=== PATIENT | female | born 1965 | race American Indian/Alaskan Native ===

== ENCOUNTER 2017-02-27 15:13 | Observation (INO) | payer BC, OTHER ==
[2017-02-27] MEDS ORDERED: Ketorolac 30 MG/ML SDV IVPUSH ONE (15:49)
[2017-02-27] MEDS ORDERED: Sodium Chloride 0.9% 10 ML Syringe FLUSH PRN (15:49)
[2017-02-27] MEDS ORDERED: Sodium Chloride 0.9% 2.5 ML Syringe FLUSH PRN (15:49)
--- NOTE | 2017-02-27 15:57 | EDM.PDOC ---
ED HPI GENERAL MEDICAL PROBLEM - General Chief Complaint: Lower Extremity Injury/Pain Stated Complaint: LEFT LEG PAIN Time Seen by Provider: 02/27/17 15:45 Source of Information: Reports: Patient History Limitations: Reports: No Limitations - History of Present Illness INITIAL COMMENTS - FREE TEXT/NARRATIVE: History of present illness: [52-year-old female presenting to ED with complaints of left leg pain. Patient is being treated and [facility] and had an MRI when she had a dialogue with her provider there indicating that she was having intractable pain in her left leg and her provider called here and then directed her to come to ER for care.] Review of systems: As per history of present illness and below otherwise all systems reviewed and negative. Past medical history: As per history of present illness and as reviewed below otherwise noncontributory. Surgical history: As per history of present illness and as reviewed below otherwise noncontributory. Social history: No reported history of drug or alcohol abuse. Family history: As per history of present illness and as reviewed below otherwise noncontributory. Physical exam: HEENT: Atraumatic, normocephalic, pupils reactive, negative for conjunctival pallor or scleral icterus, mucous membranes moist, throat clear, neck supple, nontender, trachea midline. Lungs: Clear to auscultation, breath sounds equal bilaterally, chest nontender. Heart: S1S2, regular, negative for clicks, rubs, or JVD. Abdomen: Soft, nondistended, nontender. Negative for masses or hepatosplenomegaly. Negative for costovertebral tenderness. Pelvis: Stable nontender. Genitourinary: Deferred. Rectal: Deferred. Extremities: Left leg is significantly more edematous than right with 2+ generalized nonpitting edema. Pedal pulses are palpable and recent Doppler study is negative. Neurovascular unremarkable. Neuro: Awake, alert, oriented. Cranial nerves II through XII unremarkable. Cerebellum unremarkable. Motor and sensory unremarkable throughout. Exam nonfocal. Called radiology department secondary to patient's MRI this morning and Dr. Sierra was gracious enough to evaluate that for us. MRI evaluated by Dr. Sierra positive for a significant uterine mass with resulting lymphadenopathy compressing the left external iliac vein with a resultant DVT of the external iliac vein extending into the femoral vein. Secondary to the abdominal mass Dr. Nichols consulted, he presented to the ED where he subsequently evaluated the patient and performed a pelvic. Dr. Nichols indicated that he desired to have patient admitted for medical management of her DVT and he would work on having her transferred to [facility] for oncology treatment tomorrow. Dr. Parra in ED and evaluated patient at the bedside. Diagnostics: [MRI done this morning CBC, CMP, BNP] Therapeutics: [Toradol IV, IV fluid, fentanyl, Zofran ] Impression: [Uterine carcinoma, DVT] Plan: [Admit to Dr. Parra] Definitive disposition and diagnosis as appropriate pending reevaluation and review of above. 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: Endocrine/Metabolic History: Reports: Diabetes, Type II Social & Family History - Family History Family Medical History: Noncontributory - Tobacco Use Smoking Status *Q: Current Every Day Smoker Years of Tobacco use: 30 Packs/Tins Daily: 1 - Caffeine Use Caffeine Use: Reports: Coffee Caffeine Use Comment: 3 cups daily - Recreational Drug Use Recreational Drug Use: No Review of Systems - Review of Systems Review Of Systems: See Below (History of present illness) ED EXAM, GENERAL - Physical Exam Exam: See Below (See history of present illness) Course - Vital Signs Last Recorded V/S: Last Vital Signs Temp 36.6 C 02/27/17 17:43 Pulse 98 02/27/17 17:43 Resp 14 02/27/17 17:43 BP 120/74 02/27/17 17:43 Pulse Ox 98 02/27/17 17:43 - Orders/Labs/Meds Orders: Active Orders 24 hr Category Date Time Status Patient Status [ADT] Routine ADT 02/27/17 17:48 Active Accu Check [Blood Glucose Check, Bedside] [RC] TIDMEALS Care 02/27/17 17:52 Active Cardiac Monitoring [RC] CONTINUOUS Care 02/27/17 17:50 Active Intake and Output [RC] QSHIFT Care 02/27/17 17:49 Active Oxygen Therapy [RC] PRN Care 02/27/17 17:48 Active Pulse Oximetry [RC] CONTINUOUS Care 02/27/17 17:50 Active VTE/DVT Education [RC] PER UNIT ROUTINE Care 02/27/17 17:48 Active Vital Signs [RC] Q4H Care 02/27/17 17:48 Active [place] [employer] Diet [DIET] Diet 02/27/17 Breakfast Active BASIC METABOLIC PANEL,BMP [CHEM] AM Lab 02/28/17 05:11 Ordered BASIC METABOLIC PANEL,BMP [CHEM] AM Lab 03/01/17 05:11 Ordered CBC WITH AUTO DIFF [HEME] AM Lab 02/28/17 05:11 Ordered CBC WITH AUTO DIFF [HEME] AM Lab 03/01/17 05:11 Ordered Heparin Sodium 25,000 units Med 02/27/17 17:45 Active Dextrose 5% in Water 495 ml IV TITRATE Insulin Aspart [NovoLOG] Med 02/28/17 07:30 Active See Protocol SUBCUT TIDAC Morphine Med 02/27/17 17:48 Active 2 mg IVPUSH Q2H PRN Ondansetron [Zofran] Med 02/27/17 17:48 Active 4 mg IVPUSH Q4H PRN Sodium Chloride 0.9% [Saline Flush] Med 02/27/17 15:49 Active 10 ml FLUSH ASDIRECTED PRN Sodium Chloride 0.9% [Saline Flush] Med 02/27/17 15:49 Active 2.5 ml FLUSH ASDIRECTED PRN oxyCODONE Med 02/27/17 17:48 Active 5 mg PO Q4H PRN Saline Lock Insert [OM.PC] Stat Oth 02/27/17 15:48 Ordered Resuscitation Status Routine Resus Stat 02/27/17 17:48 Ordered Medication Orders Heparin Sodium (Porcine) 25, (000 units/ Dextrose/Water) 500 mls @ 38.16 mls/ hr IV TITRATE ILDEFONSO; 18 UNITS/KG/HR PRN Reason: Protocol Insulin Aspart (Novolog) 0 unit SUBCUT TIDAC ILDEFONOS PRN Reason: Protocol Morphine Sulfate (Morphine) 2 mg IVPUSH Q2H PRN PRN Reason: Pain (severe 7-10) Stop: 02/28/17 17:49 Ondansetron HCl (Zofran) 4 mg IVPUSH Q4H PRN PRN Reason: Nausea Oxycodone HCl (Oxycodone) 5 mg PO Q4H PRN PRN Reason: Pain (moderate 4-6) Sodium Chloride (Saline Flush) 10 ml FLUSH ASDIRECTED PRN PRN Reason: Keep Vein Open Last Admin: 02/27/17 16:02 Dose: 10 ml Sodium Chloride (Saline Flush) 2.5 ml FLUSH ASDIRECTED PRN PRN Reason: Keep Vein Open Labs: Laboratory Tests 02/27/17 02/27/17 02/27/17 Range/Units 15:57 15:57 15:57 WBC 10.68 (4.0-11.0) K/uL RBC 4.23 L (4.30-5.90) M/uL Hgb 12.5 (12.0-16.0) g/dL Hct 38.5 (36.0-46.0) % MCV 91.0 (80.0-98.0) fL MCH 29.6 (27.0-32.0) pg MCHC 32.5 (31.0-37.0) g/dL RDW Std Deviation 45.3 (28.0-62.0) fl RDW Coeff of Aubree 14 (11.0-15.0) % Plt Count 219 (150-400) K/uL MPV 10.30 (7.40-12.00) fL Neut % (Auto) 75.1 (48.0-80.0) % Lymph % (Auto) 16.3 (16.0-40.0) % [place] % (Auto) 5.6 (0.0-15.0) % Eos % (Auto) 2.7 (0.0-7.0) % Baso % (Auto) 0.3 (0.0-1.5) % Neut # (Auto) 8.0 H (1.4-5.7) K/uL Lymph # (Auto) 1.7 (0.6-2.4) K/uL [place] # (Auto) 0.6 (0.0-0.8) K/uL Eos # (Auto) 0.3 (0.0-0.7) K/uL Baso # (Auto) 0.0 (0.0-0.1) K/uL Nucleated RBC % 0.0 /100WBC Nucleated RBCs # 0 K/uL INR (0.86-1.11) Lactate (0.20-2.00) mmol/L Sodium 138 (136-146) mmol/L Potassium 3.7 (3.5-5.1) mmol/L Chloride 105 (98-110) mmol/L Carbon Dioxide 22 (21-31) mmol/L BUN 17 (6.0-23.0) mg/dL Creatinine 0.7 (0.6-1.5) mg/dL Est Cr Clr Drug Dosing 83.63 mL/min Estimated GFR (MDRD) > 60.0 ml/min Glucose 94 (60-110) mg/dL Calcium 9.2 (8.8-10.8) mg/dL Total Bilirubin 0.6 (0.1-1.5) mg/dL AST 13 (5-40) IU/L ALT 12 (8-54) IU/L Alkaline Phosphatase 91 (40-150) B-Natriuretic Peptide < 15 (<100) PG/ML Total Protein 8.0 (6.0-8.0) g/dL Albumin 4.3 (3.5-5.0) g/dL Globulin 3.7 H (2.0-3.5) g/dL Albumin/Globulin Ratio 1.2 L (1.3-2.8) 02/27/17 02/27/17 Range/Units 15:57 17:27 WBC (4.0-11.0) K/uL RBC (4.30-5.90) M/uL Hgb (12.0-16.0) g/dL Hct (36.0-46.0) % MCV (80.0-98.0) fL MCH (27.0-32.0) pg MCHC (31.0-37.0) g/dL RDW Std Deviation (28.0-62.0) fl RDW Coeff of Aubree (11.0-15.0) % Plt Count (150-400) K/uL MPV (7.40-12.00) fL Neut % (Auto) (48.0-80.0) % Lymph % (Auto) (16.0-40.0) % [place] % (Auto) (0.0-15.0) % Eos % (Auto) (0.0-7.0) % Baso % (Auto) (0.0-1.5) % Neut # (Auto) (1.4-5.7) K/uL Lymph # (Auto) (0.6-2.4) K/uL [place] # (Auto) (0.0-0.8) K/uL Eos # (Auto) (0.0-0.7) K/uL Baso # (Auto) (0.0-0.1) K/uL Nucleated RBC % /100WBC Nucleated RBCs # K/uL INR 0.96 (0.86-1.11) Lactate 1.1 (0.20-2.00) mmol/L Sodium (136-146) mmol/L Potassium (3.5-5.1) mmol/L Chloride (98-110) mmol/L Carbon Dioxide (21-31) mmol/L BUN (6.0-23.0) mg/dL Creatinine (0.6-1.5) mg/dL Est Cr Clr Drug Dosing mL/min Estimated GFR (MDRD) ml/min Glucose (60-110) mg/dL Calcium (8.8-10.8) mg/dL Total Bilirubin (0.1-1.5) mg/dL AST (5-40) IU/L ALT (8-54) IU/L Alkaline Phosphatase (40-150) B-Natriuretic Peptide (<100) PG/ML Total Protein (6.0-8.0) g/dL Albumin (3.5-5.0) g/dL Globulin (2.0-3.5) g/dL Albumin/Globulin Ratio (1.3-2.8) Meds: Medications Generic Name Dose Route Start Last Admin Trade Name Freq PRN Reason Stop Dose Admin Heparin Sodium (Porcine) 25, 500 mls @ 38.16 mls/hr 02/27/17 17:45 000 units/ Dextrose/Water IV TITRATE [facility] Protocol 18 UNITS/KG/HR Insulin Aspart 0 unit 02/28/17 07:30 Novolog SUBCUT TIDAC [facility] Protocol Morphine Sulfate 2 mg 02/27/17 17:48 Morphine IVPUSH 02/28/17 17:49 Q2H PRN Pain (severe 7-10) Ondansetron HCl 4 mg 02/27/17 17:48 Zofran IVPUSH Q4H PRN Nausea Oxycodone HCl 5 mg 02/27/17 17:48 Oxycodone PO Q4H PRN Pain (moderate 4-6) Sodium Chloride 10 ml 02/27/17 15:49 02/27/17 16:02 Saline Flush FLUSH 10 ml ASDIRECTED PRN Administration Keep Vein Open Sodium Chloride 2.5 ml 02/27/17 15:49 Saline Flush FLUSH ASDIRECTED PRN Keep Vein Open Discontinued Medications Generic Name Dose Route Start Last Admin Trade Name Freq PRN Reason Stop Dose Admin Fentanyl 50 mcg 02/27/17 16:59 02/27/17 17:31 Sublimaze IVPUSH 02/27/17 17:00 Not Given ONETIME ONE Heparin Sodium/Dextrose 25,000 units in 500 mls @ 38.16 mls/hr 02/27/17 17:45 Heparin 25,000 Units In D5w 500 Ml IV TITRATE ILDEFONSO Protocol 18 UNITS/KG/HR Ketorolac Tromethamine 30 mg 02/27/17 15:49 02/27/17 16:00 Toradol IVPUSH 02/27/17 15:50 30 mg ONETIME ONE Administration Ondansetron HCl 8 mg 02/27/17 16:59 02/27/17 17:32 Zofran IVPUSH 02/27/17 17:00 Not Given ONETIME ONE Departure - Departure Time of Disposition: 17:58 Disposition: Admitted As Inpatient 65 Condition: good Clinical Impression: DVT (deep venous thrombosis), Uterine cancer - Discharge Information Forms: ED Department Discharge - My Orders Last 24 Hours: My Active Orders 02/27/17 15:48 Saline Lock Insert [OM.PC] Stat 02/27/17 15:49 Sodium Chloride 0.9% [Saline Flush] 10 ml FLUSH ASDIRECTED PRN Sodium Chloride 0.9% [Saline Flush] 2.5 ml FLUSH ASDIRECTED PRN - Assessment/Plan Last 24 Hours: My Active Orders 02/27/17 15:48 Saline Lock Insert [OM.PC] Stat 02/27/17 15:49 Sodium Chloride 0.9% [Saline Flush] 10 ml FLUSH ASDIRECTED PRN Sodium Chloride 0.9% [Saline Flush] 2.5 ml FLUSH ASDIRECTED PRN
[2017-02-27 16:27] LABS: CHLORIDE,CL 105 mmol/L (98-110); SODIUM,NA 138 mmol/L (136-146)
[2017-02-27] MEDS ORDERED: fentaNYL 100 MCG/2 ML SDV IVPUSH ONE (16:59)
[2017-02-27] MEDS ORDERED: Ondansetron 4 MG/2 ML SDV IVPUSH ONE (16:59)
[2017-02-27] MEDS ORDERED: Heparin Sodium/D5W 25,000 UNITS/500 ML BAG IV SCH (17:45)
[2017-02-27] MEDS ORDERED: Ondansetron 4 MG/2 ML SDV IVPUSH PRN (17:48)
--- NOTE | 2017-02-27 17:58 | PCM.HP ---
H&P History of Present Illness - General Admit Problem/Dx: Admission Diagnosis/Problem Admission Diagnosis/Problem DVT, Deep venous thrombosis - History of Present Illness Initial Comments - Free Text/Narative: 52 yo female with pmh of HTN and DM who presents with right leg pain and swelling for past five days. Pain and swelling start at pelvis and runs down thigh. She had MRI of pelvis which reports mass of the posterior and lower uterus to cervix. There is lymphadenopathy of iliac chains with compression of left external iliac vein resulting in DVT. Dr. Nichols was consulted in the ED and recommended admission for treatment of DVT. 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: Endocrine/Metabolic History: Reports: Diabetes, Type II Social & Family History - Family History Family Medical History: Noncontributory - Tobacco Use Smoking Status *Q: Current Every Day Smoker Years of Tobacco use: 30 Packs/Tins Daily: 1 - Caffeine Use Caffeine Use: Reports: Coffee Caffeine Use Comment: 3 cups daily - Recreational Drug Use Recreational Drug Use: No H&P Review of Systems - Review of Systems: Review Of Systems: See Below General: Reports: No Symptoms HEENT: Reports: No Symptoms Pulmonary: Reports: No Symptoms Cardiovascular: Reports: No Symptoms Gastrointestinal: Reports: No Symptoms Genitourinary: Reports: No Symptoms Musculoskeletal: Reports: No Symptoms Skin: Reports: No Symptoms Psychiatric: Reports: No Symptoms Neurological: Reports: No Symptoms Hematologic/Lymphatic: Reports: No Symptoms Immunologic: Reports: No Symptoms Exam - Exam Exam: See Below - Vital Signs Vital Signs: Last Vital Signs Temp 36.6 C 02/27/17 17:43 Pulse 98 02/27/17 17:43 Resp 14 02/27/17 17:43 BP 120/74 02/27/17 17:43 Pulse Ox 98 02/27/17 17:43 Weight: 106 kg - Exam General: Alert, Oriented, 4 HEENT: Mucosa Moist & [place] Neck: Supple, Trachea Midline Lungs: Clear to Auscultation, Normal Respiratory Effort Cardiovascular: Regular Rate, Regular Rhythm Abdomen: Soft. No: Tenderness Extremities: Other (left leg edema+1 , pedal pulses present, warm leg, patchy erythema of left thigh and anterior lower leg, ) Neurological: Normal Gait. No: Focal Deficit - Patient Data Lab Results last 24 hrs: Laboratory Results - last 24 hr 02/27/17 02/27/17 02/27/17 Range/Units 15:57 15:57 15:57 WBC 10.68 (4.0-11.0) K/uL RBC 4.23 L (4.30-5.90) M/uL Hgb 12.5 (12.0-16.0) g/dL Hct 38.5 (36.0-46.0) % MCV 91.0 (80.0-98.0) fL MCH 29.6 (27.0-32.0) pg MCHC 32.5 (31.0-37.0) g/dL RDW Std Deviation 45.3 (28.0-62.0) fl RDW Coeff of Aubree 14 (11.0-15.0) % Plt Count 219 (150-400) K/uL MPV 10.30 (7.40-12.00) fL Neut % (Auto) 75.1 (48.0-80.0) % Lymph % (Auto) 16.3 (16.0-40.0) % [place] % (Auto) 5.6 (0.0-15.0) % Eos % (Auto) 2.7 (0.0-7.0) % Baso % (Auto) 0.3 (0.0-1.5) % Neut # (Auto) 8.0 H (1.4-5.7) K/uL Lymph # (Auto) 1.7 (0.6-2.4) K/uL [place] # (Auto) 0.6 (0.0-0.8) K/uL Eos # (Auto) 0.3 (0.0-0.7) K/uL Baso # (Auto) 0.0 (0.0-0.1) K/uL Nucleated RBC % 0.0 /100WBC Nucleated RBCs # 0 K/uL INR (0.86-1.11) Lactate (0.20-2.00) mmol/L Sodium 138 (136-146) mmol/L Potassium 3.7 (3.5-5.1) mmol/L Chloride 105 (98-110) mmol/L Carbon Dioxide 22 (21-31) mmol/L BUN 17 (6.0-23.0) mg/dL Creatinine 0.7 (0.6-1.5) mg/dL Est Cr Clr Drug Dosing 83.63 mL/min Estimated GFR (MDRD) > 60.0 ml/min Glucose 94 (60-110) mg/dL Calcium 9.2 (8.8-10.8) mg/dL Total Bilirubin 0.6 (0.1-1.5) mg/dL AST 13 (5-40) IU/L ALT 12 (8-54) IU/L Alkaline Phosphatase 91 (40-150) B-Natriuretic Peptide < 15 (<100) PG/ML Total Protein 8.0 (6.0-8.0) g/dL Albumin 4.3 (3.5-5.0) g/dL Globulin 3.7 H (2.0-3.5) g/dL Albumin/Globulin Ratio 1.2 L (1.3-2.8) 02/27/17 02/27/17 Range/Units 15:57 17:27 WBC (4.0-11.0) K/uL RBC (4.30-5.90) M/uL Hgb (12.0-16.0) g/dL Hct (36.0-46.0) % MCV (80.0-98.0) fL MCH (27.0-32.0) pg MCHC (31.0-37.0) g/dL RDW Std Deviation (28.0-62.0) fl RDW Coeff of Aubree (11.0-15.0) % Plt Count (150-400) K/uL MPV (7.40-12.00) fL Neut % (Auto) (48.0-80.0) % Lymph % (Auto) (16.0-40.0) % [place] % (Auto) (0.0-15.0) % Eos % (Auto) (0.0-7.0) % Baso % (Auto) (0.0-1.5) % Neut # (Auto) (1.4-5.7) K/uL Lymph # (Auto) (0.6-2.4) K/uL [place] # (Auto) (0.0-0.8) K/uL Eos # (Auto) (0.0-0.7) K/uL Baso # (Auto) (0.0-0.1) K/uL Nucleated RBC % /100WBC Nucleated RBCs # K/uL INR 0.96 (0.86-1.11) Lactate 1.1 (0.20-2.00) mmol/L Sodium (136-146) mmol/L Potassium (3.5-5.1) mmol/L Chloride (98-110) mmol/L Carbon Dioxide (21-31) mmol/L BUN (6.0-23.0) mg/dL Creatinine (0.6-1.5) mg/dL Est Cr Clr Drug Dosing mL/min Estimated GFR (MDRD) ml/min Glucose (60-110) mg/dL Calcium (8.8-10.8) mg/dL Total Bilirubin (0.1-1.5) mg/dL AST (5-40) IU/L ALT (8-54) IU/L Alkaline Phosphatase (40-150) B-Natriuretic Peptide (<100) PG/ML Total Protein (6.0-8.0) g/dL Albumin (3.5-5.0) g/dL Globulin (2.0-3.5) g/dL Albumin/Globulin Ratio (1.3-2.8) Result Diagrams: 02/27/17 15:57 02/27/17 15:57 *Q Meaningful Use (ADM) - VTE *Q VTE Criteria *Q: - Stroke *Q Stroke Criteria *Q: - AMI *Q AMI Criteria *Q: Problem List Initiated/Reviewed/Updated: Yes Orders Last 24hrs: Active Orders 24 hr Category Date Time Status Patient Status [ADT] Routine ADT 02/27/17 17:48 Ordered Accu Check [Blood Glucose Check, Bedside] [RC] TIDMEALS Care 02/27/17 17:52 Ordered Cardiac Monitoring [RC] CONTINUOUS Care 02/27/17 17:50 Ordered Intake and Output [RC] QSHIFT Care 02/27/17 17:49 Ordered Oxygen Therapy [RC] PRN Care 02/27/17 17:48 Ordered Pulse Oximetry [RC] CONTINUOUS Care 02/27/17 17:50 Ordered VTE/DVT Education [RC] PER UNIT ROUTINE Care 02/27/17 17:48 Ordered Vital Signs [RC] Q4H Care 02/27/17 17:48 Ordered [place] [employer] Diet [DIET] Diet 02/27/17 Breakfast Ordered BASIC METABOLIC PANEL,BMP [CHEM] AM Lab 02/28/17 05:11 Ordered BASIC METABOLIC PANEL,BMP [CHEM] AM Lab 03/01/17 05:11 Ordered CBC WITH AUTO DIFF [HEME] AM Lab 02/28/17 05:11 Ordered CBC WITH AUTO DIFF [HEME] AM Lab 03/01/17 05:11 Ordered Heparin Sodium 25,000 units Med 02/27/17 17:45 Active Dextrose 5% in Water 495 ml IV TITRATE Insulin Aspart [NovoLOG] Med 02/28/17 07:30 Ordered See Protocol SUBCUT TIDAC Morphine Med 02/27/17 17:48 Ordered 2 mg IVPUSH Q2H PRN Ondansetron [Zofran] Med 02/27/17 17:48 Ordered 4 mg IVPUSH Q4H PRN Sodium Chloride 0.9% [Saline Flush] Med 02/27/17 15:49 Active 10 ml FLUSH ASDIRECTED PRN Sodium Chloride 0.9% [Saline Flush] Med 02/27/17 15:49 Active 2.5 ml FLUSH ASDIRECTED PRN oxyCODONE Med 02/27/17 17:48 Ordered 5 mg PO Q4H PRN Saline Lock Insert [OM.PC] Stat Oth 02/27/17 15:48 Ordered Resuscitation Status Routine Resus Stat 02/27/17 17:48 Ordered Medication Orders Heparin Sodium (Porcine) 25, (000 units/ Dextrose/Water) 500 mls @ 38.16 mls/ hr IV TITRATE ILDEFONSO; 18 UNITS/KG/HR PRN Reason: Protocol Insulin Aspart (Novolog) 0 unit SUBCUT TIDAC ILDEFONSO PRN Reason: Protocol Morphine Sulfate (Morphine) 2 mg IVPUSH Q2H PRN PRN Reason: Pain (severe 7-10) Stop: 02/28/17 17:49 Ondansetron HCl (Zofran) 4 mg IVPUSH Q4H PRN PRN Reason: Nausea Oxycodone HCl (Oxycodone) 5 mg PO Q4H PRN PRN Reason: Pain (moderate 4-6) Sodium Chloride (Saline Flush) 10 ml FLUSH ASDIRECTED PRN PRN Reason: Keep Vein Open Last Admin: 02/27/17 16:02 Dose: 10 ml Sodium Chloride (Saline Flush) 2.5 ml FLUSH ASDIRECTED PRN PRN Reason: Keep Vein Open Assessment/Plan Comment:: 52 yo female admitted with pelvic mass with lymphadenopathy and external iliac DVT. Dr. Nichols has been consulted and will arrange for further treatment of mass tomorrow. In the meantime will treat proximal DVT with heparin drip. Patient expressed wishes to be DNR/DNI. She would not want to be resuscitated in the event of cardiac arrest.
[2017-02-27] MEDS ORDERED: Heparin Sodium 5,000 Units/ML Vial IV ONE (18:45)
[2017-02-27] MEDS: DEXTROSE 5% IV SCH ×2 (18:53)
[2017-02-27] MEDS: HEPARIN SODIUM IV SCH ×2 (18:53)
[2017-02-27] MEDS: WATER IV SCH ×2 (18:53)
[2017-02-27] MEDS: Morphine 10 MG/ML Syringe IVPUSH PRN (20:22)
[2017-02-28] MEDS: Morphine 10 MG/ML Syringe IVPUSH PRN (00:51)
[2017-02-28 06:50] LABS: CHLORIDE,CL 105 mmol/L (98-110); SODIUM,NA 137 mmol/L (136-146)
[2017-02-28] MEDS: Insulin Aspart 100 Units/ML 3 ML Pen SUBCUT SCH ×3 (06:54→16:30)
[2017-02-28] MEDS: oxyCODONE 5 MG Tab PO PRN ×3 (08:45→23:44)
[2017-02-28] MEDS: DEXTROSE 5% IV SCH ×2 (10:46)
[2017-02-28] MEDS: HEPARIN SODIUM IV SCH ×2 (10:46)
[2017-02-28] MEDS: WATER IV SCH ×2 (10:46)
--- NOTE | 2017-02-28 12:26 | PCM.PN ---
- General Info Date of Service: 02/28/17 Admission Dx/Problem (Free Text): Admission Diagnosis/Problem Admission Diagnosis/Problem DVT, Deep venous thrombosis Subjective Update: Feeling a little better today, pain continues to left leg but oral medications helping. Denies shortness of breath or chest pain. Functional Status: Reports: pain controlled, tolerating diet, ambulating (to bathroom and back only) - Review of Systems General: Reports: No Symptoms HEENT: Reports: no symptoms. Denies: sinus congestion, sore throat Pulmonary: Reports: no symptoms. Denies: shortness of breath, cough, sputum Cardiovascular: Reports: Edema. Denies: Chest Pain, Palpitations Gastrointestinal: Reports: No symptoms. Denies: Abdominal pain, Nausea, Vomiting Genitourinary: Reports: no symptoms. Denies: dysuria, frequency, burning Musculoskeletal: Reports: leg pain (left leg pain and swelling) Skin: Reports: no symptoms Neurological: Reports: No Symptoms Psychiatric: Reports: no symptoms - Patient Data Vitals - most recent: Last Vital Signs Temp 97.9 F 02/28/17 08:00 Pulse 96 02/28/17 08:00 Resp 16 02/28/17 08:00 BP 119/73 02/28/17 08:00 Pulse Ox 96 02/28/17 08:00 Weight - most recent: 106 kg I&O - last 24 hours: Intake & Output 02/27/17 02/28/17 02/28/17 22:59 06:59 14:59 Intake Total 700 Output Total 400 Balance 300 Lab Results last 24 hrs: Laboratory Results - last 24 hr 02/28/17 02/28/17 02/28/17 Range/Units 00:13 06:15 06:15 WBC 9.92 (4.0-11.0) K/uL RBC 4.17 L (4.30-5.90) M/uL Hgb 12.2 (12.0-16.0) g/dL Hct 37.6 (36.0-46.0) % MCV 90.2 (80.0-98.0) fL MCH 29.3 (27.0-32.0) pg MCHC 32.4 (31.0-37.0) g/dL RDW Std Deviation 44.4 (28.0-62.0) fl RDW Coeff of Aubree 13 (11.0-15.0) % Plt Count 228 (150-400) K/uL MPV 10.10 (7.40-12.00) fL Neut % (Auto) 69.3 (48.0-80.0) % Lymph % (Auto) 23.0 (16.0-40.0) % [place] % (Auto) 4.6 (0.0-15.0) % Eos % (Auto) 2.8 (0.0-7.0) % Baso % (Auto) 0.3 (0.0-1.5) % Neut # (Auto) 6.9 H (1.4-5.7) K/uL Lymph # (Auto) 2.3 (0.6-2.4) K/uL [place] # (Auto) 0.5 (0.0-0.8) K/uL Eos # (Auto) 0.3 (0.0-0.7) K/uL Baso # (Auto) 0.0 (0.0-0.1) K/uL Nucleated RBC % 0.0 /100WBC Nucleated RBCs # 0 K/uL APTT 104.1 H (18.6-31.3) SEC Sodium 137 (136-146) mmol/L Potassium 4.1 (3.5-5.1) mmol/L Chloride 105 (98-110) mmol/L Carbon Dioxide 21 (21-31) mmol/L BUN 16 (6.0-23.0) mg/dL Creatinine 0.6 (0.6-1.5) mg/dL Est Cr Clr Drug Dosing 89.70 mL/min Estimated GFR (MDRD) > 60.0 ml/min Glucose 150 H (60-110) mg/dL POC Glucose (60-110) mg/dL Calcium 9.4 (8.8-10.8) mg/dL 02/28/17 02/28/17 02/28/17 Range/Units 06:15 06:57 12:07 WBC (4.0-11.0) K/uL RBC (4.30-5.90) M/uL Hgb (12.0-16.0) g/dL Hct (36.0-46.0) % MCV (80.0-98.0) fL MCH (27.0-32.0) pg MCHC (31.0-37.0) g/dL RDW Std Deviation (28.0-62.0) fl RDW Coeff of Aubree (11.0-15.0) % Plt Count (150-400) K/uL MPV (7.40-12.00) fL Neut % (Auto) (48.0-80.0) % Lymph % (Auto) (16.0-40.0) % [place] % (Auto) (0.0-15.0) % Eos % (Auto) (0.0-7.0) % Baso % (Auto) (0.0-1.5) % Neut # (Auto) (1.4-5.7) K/uL Lymph # (Auto) (0.6-2.4) K/uL [place] # (Auto) (0.0-0.8) K/uL Eos # (Auto) (0.0-0.7) K/uL Baso # (Auto) (0.0-0.1) K/uL Nucleated RBC % /100WBC Nucleated RBCs # K/uL APTT 66.5 H (18.6-31.3) SEC Sodium (136-146) mmol/L Potassium (3.5-5.1) mmol/L Chloride (98-110) mmol/L Carbon Dioxide (21-31) mmol/L BUN (6.0-23.0) mg/dL Creatinine (0.6-1.5) mg/dL Est Cr Clr Drug Dosing mL/min Estimated GFR (MDRD) ml/min Glucose (60-110) mg/dL POC Glucose 142 H 118 H (60-110) mg/dL Calcium (8.8-10.8) mg/dL Med Orders - Current: Current Medications Heparin Sodium (Porcine) 25, (000 units/ Dextrose/Water) 500 mls @ 38.16 mls/ hr IV TITRATE ILDEFONSO; 18 UNITS/KG/HR PRN Reason: Protocol Last Admin: 02/28/17 10:46 Dose: 15 units/kg/hr, 31.8 mls/hr Insulin Aspart (Novolog) 0 unit SUBCUT TIDAC ILDEFONSO PRN Reason: Protocol Last Admin: 02/28/17 06:54 Dose: Not Given Morphine Sulfate (Morphine) 2 mg IVPUSH Q2H PRN PRN Reason: Pain (severe 7-10) Ondansetron HCl (Zofran) 4 mg IVPUSH Q4H PRN PRN Reason: Nausea Oxycodone HCl (Oxycodone) 5 mg PO Q4H PRN PRN Reason: Pain (moderate 4-6) Last Admin: 02/28/17 08:45 Dose: 5 mg Sodium Chloride (Saline Flush) 10 ml FLUSH ASDIRECTED PRN PRN Reason: Keep Vein Open Last Admin: 02/27/17 16:02 Dose: 10 ml Sodium Chloride (Saline Flush) 2.5 ml FLUSH ASDIRECTED PRN PRN Reason: Keep Vein Open Discontinued Medications Fentanyl (Sublimaze) 50 mcg IVPUSH ONETIME ONE Stop: 02/27/17 17:00 Last Admin: 02/27/17 17:31 Dose: Not Given Heparin Sodium (Porcine) (Heparin Sodium) 5,000 units IV ONETIME ONE Stop: 02/27/17 18:46 Last Admin: 02/27/17 18:50 Dose: 5,000 units Heparin Sodium/Dextrose (Heparin 25,000 Units In D5w 500 Ml) 25,000 units in 500 mls @ 38.16 mls/hr IV TITRATE ILDEFONSO; 18 UNITS/KG/HR PRN Reason: Protocol Ketorolac Tromethamine (Toradol) 30 mg IVPUSH ONETIME ONE Stop: 02/27/17 15:50 Last Admin: 02/27/17 16:00 Dose: 30 mg Morphine Sulfate (Morphine) 2 mg IVPUSH Q2H PRN PRN Reason: Pain (severe 7-10) Stop: 02/28/17 17:49 Last Admin: 02/28/17 00:51 Dose: 2 mg Ondansetron HCl (Zofran) 8 mg IVPUSH ONETIME ONE Stop: 02/27/17 17:00 Last Admin: 02/27/17 17:32 Dose: Not Given - Exam General: alert, oriented, cooperative, no acute distress, other (apperas slightly sad, depressed, conversation is limited. ) Neck: supple Lungs: Clear to auscultation, Normal respiratory effort Cardiovascular: Regular Rate, Regular Rhythm, No Murmurs Abdomen: bowel sounds present, soft, no tenderness, no distension Extremities: normal pulses, edema (Left leg, +2-3 extending from thigh to foot) , other (erythema and warm noted to left medial thigh) Neurological: no new focal deficit Psy/Mental Status: alert, normal affect, normal mood - Problem List & Annotations (1) DVT (deep venous thrombosis) SNOMED Code(s): 035724763 Code(s): I82.409 - ACUTE EMBOLISM AND THOMBOS UNSP DEEP VN UNSP LOWER EXTREMITY Status: Acute Current Visit: Yes Qualifiers: DVT location: lower extremity Affected thrombotic vein of extremity: iliac Chronicity: acute Laterality: left Qualified Code(s): I82.422 - Acute embolism and thrombosis of left iliac vein (2) Pelvic mass SNOMED Code(s): 60798476 Code(s): R19.00 - INTRA-ABD AND PELVIC SWELLING, MASS AND LUMP, UNSP SITE Status: Acute Current Visit: Yes - Problem List Review Problem List Initiated/Reviewed/Updated: Yes - Plan Plan:: This 52 year old female admitted with pelvic mass with lymphadenopathy and L external iliac DVT. 1. Acute DVT: Continue heparin drip. Pain management with Oxycodone and Morphine PRN. 2. Pelvic mass: Dr. Nichols has been consulted and will make arrangements for further treatment of mass. Dispo: Pending further arrangements..
[2017-02-28] MEDS: Morphine 2 MG/ML Syringe IVPUSH PRN ×2 (12:31→20:05)
--- NOTE | 2017-02-28 14:19 | CONS ---
DATE OF CONSULTATION: DATE OF : 1965 PRIMARY CARE PHYSICIAN: None PCP For the purpose of this consultation I did physical examination and I reviewed the MRI and CAT scans of the abdomen and pelvis for this patient. BRIEF HISTORY: This is a 52-year-old patient. She is para 2-0-0-2, both of them delivered by spontaneous vaginal delivery. The youngest one is [id number]. The patient an is hypertensive and diabetic. She is a type 2 diabetes. She is taking medication for both the high blood pressure and diabetes. The patient have not had a PROGRAM ELIGIBILITY SPECIALIST examination or Pap smear or any PROGRAM ELIGIBILITY SPECIALIST evaluation for the last 20 years. She presented to the emergency room complaining of the swelling and redness in the left thigh and leg with tenderness that later on confirmed to DVT. The patient has denied any vaginal bleeding. She stated, she is post menopausal. She stopped period spontaneously. She thinks it is about three and half years ago. However, she reported some mild spotting here and there in the last 6 months. The patient have not bothered to seek any help for this spotting. She denied any pelvic pain, any pelvic pressure or any other PROGRAM ELIGIBILITY SPECIALIST problems. Today, on examination and the examination is limited to the abdomen and the pelvis and her abdominal examination essentially is benign. It is nontender. There is no organomegaly. The liver and spleen is not palpable. Examination of the lower extremity, the patient shows swelling and tenderness and redness in the left thigh and leg consistent with the patient having DVT. The right leg essentially is normal. Normal pelvic examination revealed the external vulva is normal. The vagina is normal. The cervix was visualized. There is no visible mass or necrotic mass in the cervix. However, there is some swelling of the cervix with increased vascularity. Bimanual examination does reveal that there is a cervical mass, that is clearly probable by the bimanual examination and the uterus is very difficult to evaluate because of the patient's body habitus. However, the rectovaginal examination confirmed the presence of the cervical mass. I reviewed the MRI and the and CAT scan with the radiologist, confirming, at the present, the patient did have a rather large masses, the measurement is about 10 cm x 5 cm. It is seems to be solid mass and it does seems to be confining to this cervix. However, in the cervix and in the pelvis, there is bilateral lymphadenopathy suspicious for cancer and the mass is pressing on the left iliac vessels and the radiologist is theorizing that this is may be why the patient does have left DVT. 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 I do not have a tissue diagnosis. At this time, I did not do a biopsy on this patient because of her DVT and the fact that she needs to be started on heparin or already started on heparin for this problem fearing that this could create a significant bleeding and at this time do not think I can control this bleeding. 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 I am planning to send this patient to [facility] for further management. I discussed my tentative finding with the patient and made her aware of my possible diagnoses. The patient will be admitted to the hospital today by the hospitalist to start her on heparin and to manage her heparin for her urgent problem of DVT and we will try to transfer the patient for the Oncology Center tomorrow. SANDHYA / TATYANA /[id number]
[2017-03-01] MEDS: Morphine 2 MG/ML Syringe IVPUSH PRN (02:29)
[2017-03-01] MEDS: DEXTROSE 5% IV SCH ×2 (03:33)
[2017-03-01] MEDS: HEPARIN SODIUM IV SCH ×2 (03:33)
[2017-03-01] MEDS: WATER IV SCH ×2 (03:33)
[2017-03-01] MEDS: oxyCODONE 5 MG Tab PO PRN ×2 (04:32→08:31)
[2017-03-01] MEDS: Insulin Aspart 100 Units/ML 3 ML Pen SUBCUT SCH (06:36)
[2017-03-01 07:03] LABS: CHLORIDE,CL 104 mmol/L (98-110); SODIUM,NA 136 mmol/L (136-146)
[2017-03-01 07:50] VITALS: BP 109/70
--- NOTE | 2017-03-01 08:58 | PCM.PN ---
- General Info Date of Service: 03/01/17 Functional Status: Reports: pain controlled - Review of Systems General: Reports: No Symptoms HEENT: Reports: no symptoms Pulmonary: Reports: no symptoms Cardiovascular: Reports: No Symptoms Gastrointestinal: Reports: No symptoms Genitourinary: Reports: no symptoms Musculoskeletal: Reports: no symptoms Skin: Reports: no symptoms Neurological: Reports: No Symptoms Psychiatric: Reports: no symptoms - Patient Data Vitals - most recent: Last Vital Signs Temp 36.1 C 03/01/17 07:48 Pulse 91 03/01/17 07:48 Resp 16 03/01/17 07:48 BP 109/70 03/01/17 07:48 Pulse Ox 93 L 03/01/17 07:48 Weight - most recent: 106 kg I&O - last 24 hours: Intake & Output 02/28/17 03/01/17 03/01/17 22:59 06:59 14:59 Intake Total 1600 1200 Output Total 2400 1800 Balance -800 -600 Lab Results last 24 hrs: Laboratory Results - last 24 hr 02/28/17 02/28/17 02/28/17 Range/Units 12:07 12:24 16:30 WBC (4.0-11.0) K/uL RBC (4.30-5.90) M/uL Hgb (12.0-16.0) g/dL Hct (36.0-46.0) % MCV (80.0-98.0) fL MCH (27.0-32.0) pg MCHC (31.0-37.0) g/dL RDW Std Deviation (28.0-62.0) fl RDW Coeff of Aubree (11.0-15.0) % Plt Count (150-400) K/uL MPV (7.40-12.00) fL Neut % (Auto) (48.0-80.0) % Lymph % (Auto) (16.0-40.0) % [place] % (Auto) (0.0-15.0) % Eos % (Auto) (0.0-7.0) % Baso % (Auto) (0.0-1.5) % Neut # (Auto) (1.4-5.7) K/uL Lymph # (Auto) (0.6-2.4) K/uL [place] # (Auto) (0.0-0.8) K/uL Eos # (Auto) (0.0-0.7) K/uL Baso # (Auto) (0.0-0.1) K/uL Nucleated RBC % /100WBC Nucleated RBCs # K/uL APTT 59.7 H (18.6-31.3) SEC Sodium (136-146) mmol/L Potassium (3.5-5.1) mmol/L Chloride (98-110) mmol/L Carbon Dioxide (21-31) mmol/L BUN (6.0-23.0) mg/dL Creatinine (0.6-1.5) mg/dL Est Cr Clr Drug Dosing mL/min Estimated GFR (MDRD) ml/min Glucose (60-110) mg/dL POC Glucose 118 H 107 (60-110) mg/dL Calcium (8.8-10.8) mg/dL 02/28/17 03/01/17 03/01/17 Range/Units 18:02 00:26 06:20 WBC 9.36 (4.0-11.0) K/uL RBC 4.07 L (4.30-5.90) M/uL Hgb 12.1 (12.0-16.0) g/dL Hct 36.4 (36.0-46.0) % MCV 89.4 (80.0-98.0) fL MCH 29.7 (27.0-32.0) pg MCHC 33.2 (31.0-37.0) g/dL RDW Std Deviation 43.3 (28.0-62.0) fl RDW Coeff of Aubree 13 (11.0-15.0) % Plt Count 243 (150-400) K/uL MPV 10.30 (7.40-12.00) fL Neut % (Auto) 65.4 (48.0-80.0) % Lymph % (Auto) 23.1 (16.0-40.0) % [place] % (Auto) 7.9 (0.0-15.0) % Eos % (Auto) 3.2 (0.0-7.0) % Baso % (Auto) 0.4 (0.0-1.5) % Neut # (Auto) 6.1 H (1.4-5.7) K/uL Lymph # (Auto) 2.2 (0.6-2.4) K/uL [place] # (Auto) 0.7 (0.0-0.8) K/uL Eos # (Auto) 0.3 (0.0-0.7) K/uL Baso # (Auto) 0.0 (0.0-0.1) K/uL Nucleated RBC % 0.0 /100WBC Nucleated RBCs # 0 K/uL APTT 59.2 H 54.2 H (18.6-31.3) SEC Sodium (136-146) mmol/L Potassium (3.5-5.1) mmol/L Chloride (98-110) mmol/L Carbon Dioxide (21-31) mmol/L BUN (6.0-23.0) mg/dL Creatinine (0.6-1.5) mg/dL Est Cr Clr Drug Dosing mL/min Estimated GFR (MDRD) ml/min Glucose (60-110) mg/dL POC Glucose (60-110) mg/dL Calcium (8.8-10.8) mg/dL 03/01/17 03/01/17 03/01/17 Range/Units 06:20 06:20 06:20 WBC (4.0-11.0) K/uL RBC (4.30-5.90) M/uL Hgb (12.0-16.0) g/dL Hct (36.0-46.0) % MCV (80.0-98.0) fL MCH (27.0-32.0) pg MCHC (31.0-37.0) g/dL RDW Std Deviation (28.0-62.0) fl RDW Coeff of Aubree (11.0-15.0) % Plt Count (150-400) K/uL MPV (7.40-12.00) fL Neut % (Auto) (48.0-80.0) % Lymph % (Auto) (16.0-40.0) % [place] % (Auto) (0.0-15.0) % Eos % (Auto) (0.0-7.0) % Baso % (Auto) (0.0-1.5) % Neut # (Auto) (1.4-5.7) K/uL Lymph # (Auto) (0.6-2.4) K/uL [place] # (Auto) (0.0-0.8) K/uL Eos # (Auto) (0.0-0.7) K/uL Baso # (Auto) (0.0-0.1) K/uL Nucleated RBC % /100WBC Nucleated RBCs # K/uL APTT 62.0 H (18.6-31.3) SEC Sodium 136 (136-146) mmol/L Potassium 4.0 (3.5-5.1) mmol/L Chloride 104 (98-110) mmol/L Carbon Dioxide 22 (21-31) mmol/L BUN 17 (6.0-23.0) mg/dL Creatinine 0.6 (0.6-1.5) mg/dL Est Cr Clr Drug Dosing 89.70 mL/min Estimated GFR (MDRD) > 60.0 ml/min Glucose 140 H (60-110) mg/dL POC Glucose 134 H (60-110) mg/dL Calcium 8.6 L (8.8-10.8) mg/dL Med Orders - Current: Current Medications Enoxaparin Sodium (Lovenox) 100 mg SUBCUT Q12HR ILDEFONSO Insulin Aspart (Novolog) 0 unit SUBCUT TIDAC ILDEFONSO PRN Reason: Protocol Last Admin: 03/01/17 06:36 Dose: Not Given Morphine Sulfate (Morphine) 2 mg IVPUSH Q2H PRN PRN Reason: Pain (severe 7-10) Last Admin: 03/01/17 02:29 Dose: 2 mg Ondansetron HCl (Zofran) 4 mg IVPUSH Q4H PRN PRN Reason: Nausea Oxycodone HCl (Oxycodone) 5 mg PO Q4H PRN PRN Reason: Pain (moderate 4-6) Last Admin: 03/01/17 08:31 Dose: 5 mg Sodium Chloride (Saline Flush) 10 ml FLUSH ASDIRECTED PRN PRN Reason: Keep Vein Open Last Admin: 02/27/17 16:02 Dose: 10 ml Sodium Chloride (Saline Flush) 2.5 ml FLUSH ASDIRECTED PRN PRN Reason: Keep Vein Open Discontinued Medications Fentanyl (Sublimaze) 50 mcg IVPUSH ONETIME ONE Stop: 02/27/17 17:00 Last Admin: 02/27/17 17:31 Dose: Not Given Heparin Sodium (Porcine) (Heparin Sodium) 5,000 units IV ONETIME ONE Stop: 02/27/17 18:46 Last Admin: 02/27/17 18:50 Dose: 5,000 units Heparin Sodium/Dextrose (Heparin 25,000 Units In D5w 500 Ml) 25,000 units in 500 mls @ 38.16 mls/hr IV TITRATE ILDEFONSO; 18 UNITS/KG/HR PRN Reason: Protocol Heparin Sodium (Porcine) 25, (000 units/ Dextrose/Water) 500 mls @ 38.16 mls/ hr IV TITRATE ILDEFONSO; 18 UNITS/KG/HR PRN Reason: Protocol Last Admin: 03/01/17 03:33 Dose: 15 units/kg/hr, 31.8 mls/hr Ketorolac Tromethamine (Toradol) 30 mg IVPUSH ONETIME ONE Stop: 02/27/17 15:50 Last Admin: 02/27/17 16:00 Dose: 30 mg Morphine Sulfate (Morphine) 2 mg IVPUSH Q2H PRN PRN Reason: Pain (severe 7-10) Stop: 02/28/17 17:49 Last Admin: 02/28/17 00:51 Dose: 2 mg Ondansetron HCl (Zofran) 8 mg IVPUSH ONETIME ONE Stop: 02/27/17 17:00 Last Admin: 02/27/17 17:32 Dose: Not Given - Exam General: alert, oriented HEENT: Pupils equal, Pupils reactive, EOMI, Mucous membr. moist/pink Neck: supple Lungs: Clear to auscultation, Normal respiratory effort Cardiovascular: Regular Rate, Regular Rhythm Abdomen: bowel sounds present, soft, no tenderness, no distension (Female) Exam: Normal External Exam, Normal Speculum Exam, Normal Bimanual Exam Back Exam: Normal Inspection, Full Range of Motion Extremities: no edema Skin: warm, dry, intact Wound/Incisions: healing well Neurological: no new focal deficit Psy/Mental Status: alert, normal affect, normal mood - Problem List Review Problem List Initiated/Reviewed/Updated: Yes - Assessment Assessment:: Patient is on Lovenox for her DVT she have a cervical mass suspecting cervical carcinoma the patient would be discharged home today she have an appointment to at the [facility] with a [facility] oncologist for further management and consultation for appointment is on at 8:30 AM - Plan Plan:: This 52 year old female admitted with pelvic mass with lymphadenopathy and L external iliac DVT. 1. Acute DVT: Continue heparin drip. Pain management with Oxycodone and Morphine PRN. 2. Pelvic mass: Dr. Nichols has been consulted and will make arrangements for further treatment of mass. Dispo: Pending further arrangements..
[2017-03-01] MEDS ORDERED: Enoxaparin 100 MG/1 ML Syringe SUBCUT SCH (09:00)
--- NOTE | 2017-03-01 09:13 | PCM.DCSUM1 ---
Discharge Summary - Hospital Course Brief History: This 52 year old female with pmh of HTN and DM who presented to the ED with right leg pain and swelling for past five days. Pain and swelling start at pelvis and runs down thigh. She had MRI of pelvis which reports mass of the posterior and lower uterus to cervix. There is lymphadenopathy of iliac chains with compression of left external iliac vein resulting in DVT. Dr. Nichols was consulted in the ED and recommended admission for treatment of DVT. - Discharge Data Discharge Date: 03/01/17 Discharge Disposition: Home, Self-Care 01 Condition: Good - Discharge Diagnosis/Problem(s) (1) DVT (deep venous thrombosis) SNOMED Code(s): 785499756 ICD Code: I82.409 - ACUTE EMBOLISM AND THOMBOS UNSP DEEP VN UNSP LOWER EXTREMITY Status: Acute Current Visit: Yes Qualifiers: DVT location: lower extremity Affected thrombotic vein of extremity: iliac Chronicity: acute Laterality: left Qualified Code(s): I82.422 - Acute embolism and thrombosis of left iliac vein (2) Pelvic mass SNOMED Code(s): 65698935 ICD Code: R19.00 - INTRA-ABD AND PELVIC SWELLING, MASS AND LUMP, UNSP SITE Status: Acute Current Visit: Yes - Patient Summary/Data Consults: Consultations 02/27/17 18:11 Consult to Physician [CONS] Routine - Discharge Plan Prescriptions/Med Rec: Enoxaparin [Lovenox] 100 mg SUBCUT Q12HR #20 syringe oxyCODONE 5 - 10 mg PO Q4H PRN #20 tablet PRN Reason: Pain Home Medications: Home Meds metFORMIN [Glucophage XR] 0 mg PO BIDMEALS 02/27/17 [History] Albuterol [Proventil HFA] 2 inh IH Q4H PRN 02/28/17 [History] Furosemide 20 mg PO DAILY 02/28/17 [History] Hydrochlorothiazide 12.5 mg PO DAILY 02/28/17 [History] Losartan [Cozaar] 100 mg PO DAILY 02/28/17 [History] Pioglitazone [Actos] 30 mg PO DAILY 02/28/17 [History] Enoxaparin [Lovenox] 100 mg SUBCUT Q12HR #20 syringe 03/01/17 [Rx] oxyCODONE 5 - 10 mg PO Q4H PRN #20 tablet 03/01/17 [Rx] Patient Handouts: Oxycodone tablets or capsules, Enoxaparin injection, Deep Vein Thrombosis, Pelvic Mass Referrals: Nola Barillas PA-C [Ordering Only Provider] - 03/07/17 10:00 am - Discharge Summary/Plan Comment DC Time >30 min.: No Discharge Summary/Plan Comment: Discharge Diagnoses: L leg DVT, external iliac Pelvic Mass HTN DM type 2 Obesity Lavinia was admitted and treated with Heparin gtt for DVT. This was maintained for 2 days, until arrangements were made with [facility] [employer] oncologist. Dr. Nichols, [employer] TE[employer] was consulted and made these arrangements. [facility] felt acute hospital to hospital transfer was unnecessary, but requested patient be placed on Lovenox until they saw her. Appointment was arranged with Dr. Ludwig , V[employer]UC[employer] TE[employer]ER/ONC for March 02 at [address] Lavinia has contacted her duaghter, who has agreed to help transfer her to [place] for the appointment tomorrow. She continues to denies chest pain or SOB. Left leg continues to be swollen with some erythema, pain is well controlled with Oxycodone. During travel she was educated to keep leg elevated as much as possible. I will give her 10 day supply of Lovenox 100 mg, she is to inject this BID. Further dosing or oral anticoagulants to be provided after consultation with [employer]UC[employer] TE[employer]ER/ONC by PCP. She will need at least 3 months of treatment for DVT. She is encouraged to drive straight to [place] today for appointment. She is encouraged to get to an ED or clinic if she experiences any problems. All home medications continued. She was given Oxycodone 5-10 mg by mouth Q4 hrs PRN pain #20. - General Info Date of Service: 03/01/17 Admission Dx/Problem (Free Text: Admission Diagnosis/Problem Admission Diagnosis/Problem DVT, Deep venous thrombosis Subjective Update: Doing well this morning. Appears to be a much better mood today, laughing and joking with staff. Denies any chest pain or SOB. Remains on RA. Pain tolerable to left leg. Functional Status: Reports: pain controlled, tolerating diet, ambulating, urinating - Review of Systems General: Reports: No Symptoms. Denies: Fever HEENT: Reports: no symptoms Pulmonary: Reports: no symptoms. Denies: shortness of breath, cough, sputum Cardiovascular: Reports: Edema (left leg). Denies: Chest Pain, Palpitations - Patient Data Vitals - Most Recent: Last Vital Signs Temp 97.0 F 03/01/17 07:48 Pulse 91 03/01/17 07:48 Resp 16 03/01/17 07:48 BP 109/70 03/01/17 07:48 Pulse Ox 93 L 03/01/17 07:48 Weight - Most Recent: 106 kg I&O - Last 24 hours: Intake & Output 02/28/17 03/01/17 03/01/17 22:59 06:59 14:59 Intake Total 1600 1200 Output Total 2400 1800 Balance -800 -600 Lab Results - Last 24 hrs: Laboratory Results - last 24 hr 02/28/17 02/28/17 02/28/17 Range/Units 12:07 12:24 16:30 WBC (4.0-11.0) K/uL RBC (4.30-5.90) M/uL Hgb (12.0-16.0) g/dL Hct (36.0-46.0) % MCV (80.0-98.0) fL MCH (27.0-32.0) pg MCHC (31.0-37.0) g/dL RDW Std Deviation (28.0-62.0) fl RDW Coeff of Aubree (11.0-15.0) % Plt Count (150-400) K/uL MPV (7.40-12.00) fL Neut % (Auto) (48.0-80.0) % Lymph % (Auto) (16.0-40.0) % [place]ois % (Auto) (0.0-15.0) % Eos % (Auto) (0.0-7.0) % Baso % (Auto) (0.0-1.5) % Neut # (Auto) (1.4-5.7) K/uL Lymph # (Auto) (0.6-2.4) K/uL [place] # (Auto) (0.0-0.8) K/uL Eos # (Auto) (0.0-0.7) K/uL Baso # (Auto) (0.0-0.1) K/uL Nucleated RBC % /100WBC Nucleated RBCs # K/uL APTT 59.7 H (18.6-31.3) SEC Sodium (136-146) mmol/L Potassium (3.5-5.1) mmol/L Chloride (98-110) mmol/L Carbon Dioxide (21-31) mmol/L BUN (6.0-23.0) mg/dL Creatinine (0.6-1.5) mg/dL Est Cr Clr Drug Dosing mL/min Estimated GFR (MDRD) ml/min Glucose (60-110) mg/dL POC Glucose 118 H 107 (60-110) mg/dL Calcium (8.8-10.8) mg/dL 02/28/17 03/01/17 03/01/17 Range/Units 18:02 00:26 06:20 WBC 9.36 (4.0-11.0) K/uL RBC 4.07 L (4.30-5.90) M/uL Hgb 12.1 (12.0-16.0) g/dL Hct 36.4 (36.0-46.0) % MCV 89.4 (80.0-98.0) fL MCH 29.7 (27.0-32.0) pg MCHC 33.2 (31.0-37.0) g/dL RDW Std Deviation 43.3 (28.0-62.0) fl RDW Coeff of Aubree 13 (11.0-15.0) % Plt Count 243 (150-400) K/uL MPV 10.30 (7.40-12.00) fL Neut % (Auto) 65.4 (48.0-80.0) % Lymph % (Auto) 23.1 (16.0-40.0) % [place]ois % (Auto) 7.9 (0.0-15.0) % Eos % (Auto) 3.2 (0.0-7.0) % Baso % (Auto) 0.4 (0.0-1.5) % Neut # (Auto) 6.1 H (1.4-5.7) K/uL Lymph # (Auto) 2.2 (0.6-2.4) K/uL [place] # (Auto) 0.7 (0.0-0.8) K/uL Eos # (Auto) 0.3 (0.0-0.7) K/uL Baso # (Auto) 0.0 (0.0-0.1) K/uL Nucleated RBC % 0.0 /100WBC Nucleated RBCs # 0 K/uL APTT 59.2 H 54.2 H (18.6-31.3) SEC Sodium (136-146) mmol/L Potassium (3.5-5.1) mmol/L Chloride (98-110) mmol/L Carbon Dioxide (21-31) mmol/L BUN (6.0-23.0) mg/dL Creatinine (0.6-1.5) mg/dL Est Cr Clr Drug Dosing mL/min Estimated GFR (MDRD) ml/min Glucose (60-110) mg/dL POC Glucose (60-110) mg/dL Calcium (8.8-10.8) mg/dL 03/01/17 03/01/17 03/01/17 Range/Units 06:20 06:20 06:20 WBC (4.0-11.0) K/uL RBC (4.30-5.90) M/uL Hgb (12.0-16.0) g/dL Hct (36.0-46.0) % MCV (80.0-98.0) fL MCH (27.0-32.0) pg MCHC (31.0-37.0) g/dL RDW Std Deviation (28.0-62.0) fl RDW Coeff of Aubree (11.0-15.0) % Plt Count (150-400) K/uL MPV (7.40-12.00) fL Neut % (Auto) (48.0-80.0) % Lymph % (Auto) (16.0-40.0) % [place] % (Auto) (0.0-15.0) % Eos % (Auto) (0.0-7.0) % Baso % (Auto) (0.0-1.5) % Neut # (Auto) (1.4-5.7) K/uL Lymph # (Auto) (0.6-2.4) K/uL [place] # (Auto) (0.0-0.8) K/uL Eos # (Auto) (0.0-0.7) K/uL Baso # (Auto) (0.0-0.1) K/uL Nucleated RBC % /100WBC Nucleated RBCs # K/uL APTT 62.0 H (18.6-31.3) SEC Sodium 136 (136-146) mmol/L Potassium 4.0 (3.5-5.1) mmol/L Chloride 104 (98-110) mmol/L Carbon Dioxide 22 (21-31) mmol/L BUN 17 (6.0-23.0) mg/dL Creatinine 0.6 (0.6-1.5) mg/dL Est Cr Clr Drug Dosing 89.70 mL/min Estimated GFR (MDRD) > 60.0 ml/min Glucose 140 H (60-110) mg/dL POC Glucose 134 H (60-110) mg/dL Calcium 8.6 L (8.8-10.8) mg/dL Med Orders - Current: Current Medications Enoxaparin Sodium (Lovenox) 100 mg SUBCUT Q12HR ILDEFONSO Insulin Aspart (Novolog) 0 unit SUBCUT TIDAC ILDEFONSO PRN Reason: Protocol Last Admin: 03/01/17 06:36 Dose: Not Given Morphine Sulfate (Morphine) 2 mg IVPUSH Q2H PRN PRN Reason: Pain (severe 7-10) Last Admin: 03/01/17 02:29 Dose: 2 mg Ondansetron HCl (Zofran) 4 mg IVPUSH Q4H PRN PRN Reason: Nausea Oxycodone HCl (Oxycodone) 5 mg PO Q4H PRN PRN Reason: Pain (moderate 4-6) Last Admin: 03/01/17 08:31 Dose: 5 mg Sodium Chloride (Saline Flush) 10 ml FLUSH ASDIRECTED PRN PRN Reason: Keep Vein Open Last Admin: 02/27/17 16:02 Dose: 10 ml Sodium Chloride (Saline Flush) 2.5 ml FLUSH ASDIRECTED PRN PRN Reason: Keep Vein Open Discontinued Medications Fentanyl (Sublimaze) 50 mcg IVPUSH ONETIME ONE Stop: 02/27/17 17:00 Last Admin: 02/27/17 17:31 Dose: Not Given Heparin Sodium (Porcine) (Heparin Sodium) 5,000 units IV ONETIME ONE Stop: 02/27/17 18:46 Last Admin: 02/27/17 18:50 Dose: 5,000 units Heparin Sodium/Dextrose (Heparin 25,000 Units In D5w 500 Ml) 25,000 units in 500 mls @ 38.16 mls/hr IV TITRATE ILDEFONSO; 18 UNITS/KG/HR PRN Reason: Protocol Heparin Sodium (Porcine) 25, (000 units/ Dextrose/Water) 500 mls @ 38.16 mls/ hr IV TITRATE ILDEFONSO; 18 UNITS/KG/HR PRN Reason: Protocol Last Admin: 03/01/17 03:33 Dose: 15 units/kg/hr, 31.8 mls/hr Ketorolac Tromethamine (Toradol) 30 mg IVPUSH ONETIME ONE Stop: 02/27/17 15:50 Last Admin: 02/27/17 16:00 Dose: 30 mg Morphine Sulfate (Morphine) 2 mg IVPUSH Q2H PRN PRN Reason: Pain (severe 7-10) Stop: 02/28/17 17:49 Last Admin: 02/28/17 00:51 Dose: 2 mg Ondansetron HCl (Zofran) 8 mg IVPUSH ONETIME ONE Stop: 02/27/17 17:00 Last Admin: 02/27/17 17:32 Dose: Not Given - Exam Quality Assessment: Reports: DVT prophylaxis. Denies: supplemental oxygen General: Reports: alert, oriented, cooperative, no acute distress Neck: Reports: supple Lungs: Reports: Clear to auscultation, Normal respiratory effort Cardiovascular: Reports: Regular Rate, Regular Rhythm Abdomen: Reports: bowel sounds present, soft, no tenderness, no distension Extremities: Reports: edema (+1-2 non pitting edema to Left leg, thigh extending distally.) Wound/Incisions: Reports: erythema improving Psy/Mental Status: Reports: alert, normal affect, normal mood *Q Meaningful Use (DIS) - VTE *Q VTE Criteria *Q: - Stroke *Q Stroke Criteria *Q: - AMI *Q AMI Criteria *Q:
== END 2017-03-01 11:19 | disposition home or self-care (01) ==
LOC: MW.ED 15:13 → MW.MS 17:49 → INTOOBSV 17:49
PROVIDERS: ADMIT Internal Medicine; ATTEND Internal Medicine
DX: I82.422 Acute embolism and thrombosis of left iliac vein (principal); C53.9 Malignant neoplasm of cervix uteri, unspecified; R19.00 Intra-abdominal and pelvic swelling, mass and lump, unspecified site; I10 Essential (primary) hypertension; E11.9 Type 2 diabetes mellitus without complications; E66.9 Obesity, unspecified; F17.200 Nicotine dependence, unspecified, uncomplicated; Z79.899 Other long term (current) drug therapy; Z66 Do not resuscitate; Z68.41 Body mass index [BMI] 40.0-44.9, adult; Z79.84 Long term (current) use of oral hypoglycemic drugs
CPT/HCPCS: 36415; 80048; 80053; 82962; 83605; 83880; 85025; 85610; 85730; 96365; 96366; 96372; 96375; 96376; 99285; A9270; G0378; J1644; J1650; J1885; J2270; J7060; 96374

== ENCOUNTER 2017-05-31 06:56 | Day surgery (SDC) | payer BC, OTHER ==
[~2017-05-31 06:56] MED LIST: Clindamycin Phosphate in D5W 300 MG in Premix Bag 1 BAG IV ONE; Lactated Ringers 1,000 ML IV SCH; Sodium Chloride 0.9% 10 ML Syringe FLUSH PRN; Sodium Chloride 0.9% 2.5 ML Syringe FLUSH PRN
[2017-05-31] MEDS ORDERED: Bupivacaine 0.5% 30 ML SDV ONE (07:17)
--- NOTE | 2017-05-31 07:55 | PCM.PREANE ---
Preanesthetic Assessment - Anesthesia/Transfusion/Family Hx Anesthesia History: No Prior Anesthesia Family History of Anesthesia Reaction: No Transfusion History: No Prior Transfusion(s) - Review of Systems General: No Symptoms Neurological: No Symptoms Other: Reports: None - Physical Assessment NPO Status Date: 05/30/17 Height: 1.6 m Weight: 99.79 kg ASA Class: 3 Mental Status: Alert & Oriented x3 Airway Class: Mallampati = 2 Dentition: Reports: Dentures ROM/Head Extension: Full Lungs: Normal Respiratory Effort, Rales Cardiovascular: Regular Rate, Regular Rhythm - Allergies Allergies/Adverse Reactions: Allergies Allergy/AdvReac Type Severity Reaction Status Date / Time cephalexin [From Keflex] Allergy Swelling Verified 05/29/17 10:16 Penicillins Allergy Swelling Verified 05/29/17 10:16 - Anesthesia Plan Pre-Op Medication Ordered: None - Acknowledgements Anesthesia Type Planned: General Anesthesia Pt an Appropriate Candidate for the Planned Anesthesia: Yes Alternatives and Risks of Anesthesia Discussed w Pt/Guardian: Yes Pt/Guardian Understands and Agrees with Anesthesia Plan: Yes Additional Comments: pmh: super morbid obesity, DM2, RAD, smoker, on diuretics for leg edema, denies hx CHF but has bilat basilar rales. Plan: GET PreAnesthesia Questionnaire - Past Health History Medical/Surgical History: Denies Medical/Surgical History HEENT History: Reports: Other (See Below) Other HEENT History: wears glasses, has upper and lower dentures. Cardiovascular History: Reports: Blood Clots/VTE/DVT, Hypertension Other Cardiovascular History: DVT left leg in February Respiratory History: Reports: Asthma HOB GRINDER History: Reports: Musculoskeletal History: Reports: Fracture Other Musculoskeletal History: hx of fx arm Endocrine/Metabolic History: Reports: Diabetes, Type II, Obesity/BMI 30+ Oncologic (Cancer) History: Reports: Cervix - Infectious Disease History Infectious Disease History: Reports: Influenza - Past Surgical History HEENT Surgical History: Reports: None Female Surgical History: Reports: Other (See Below) Other Female Surgeries/Procedures: current metastatic cervical cancer - SUBSTANCE USE Smoking Status *Q: Current Every Day Smoker Tobacco Use Within Last Twelve Months: Cigarettes Second Hand Smoke Exposure: Yes Recreational Drug Use History: No - HOME MEDS Home Medications: Home Meds metFORMIN [Glucophage XR] 750 mg PO BIDMEALS 02/27/17 [History] Albuterol [Proventil HFA] 2 inh IH Q4H PRN 02/28/17 [History] Hydrochlorothiazide 12.5 mg PO DAILY 02/28/17 [History] Losartan [Cozaar] 100 mg PO DAILY 02/28/17 [History] Pioglitazone [Actos] 30 mg PO DAILY 02/28/17 [History] Enoxaparin [Lovenox] 100 mg SUBCUT Q12HR #20 syringe 03/01/17 [Rx] oxyCODONE 5 - 10 mg PO Q4H PRN #20 tablet 03/01/17 [Rx] - CURRENT (IN HOUSE) MEDS Current Meds: Current Medications Lactated Ringer's (Ringers, Lactated) 1,000 mls @ 125 mls/hr IV ASDIRECTED ILDEFONSO Sodium Chloride (Saline Flush) 10 ml FLUSH ASDIRECTED PRN PRN Reason: Keep Vein Open Sodium Chloride (Saline Flush) 2.5 ml FLUSH ASDIRECTED PRN PRN Reason: Keep Vein Open Discontinued Medications Bupivacaine HCl (Marcaine 0.5%) Confirm Administered Dose 30 ml .ROUTE .STK-MED ONE Stop: 05/31/17 07:18 Clindamycin Phosphate 300 mg/ (Premix) 50 mls @ 100 mls/hr IV ONETIME ONE Stop: 05/30/17 13:14
[2017-05-31] MEDS ORDERED: Clindamycin Phosphate in D5W 300 MG in Premix Bag 1 BAG IV ONE ×2 (08:00)
[2017-05-31] MEDS ORDERED: Midazolam 1 MG/ML 2 ML SDV ONE (08:09)
[2017-05-31] MEDS ORDERED: fentaNYL 100 MCG/2 ML SDV ONE (08:09)
[2017-05-31] MEDS ORDERED: Lidocaine 2% 5 ML SDV ONE (08:10)
[2017-05-31] MEDS ORDERED: Propofol 200 MG/20 ML SDV ONE (08:10)
[2017-05-31] MEDS ORDERED: fentaNYL 100 MCG/2 ML SDV IVPUSH PRN (08:25)
[2017-05-31] MEDS ORDERED: Heparin Sodium 100 Units/ML 3 ML Syringe ONE (08:43)
[2017-05-31] MEDS ORDERED: Lidocaine 1% 20 ML MDV ONE (08:44)
[2017-05-31] MEDS ORDERED: diphenhydrAMINE 50 MG/ML SDV ONE (08:45)
[2017-05-31] MEDS ORDERED: Ondansetron 4 MG/2 ML SDV ONE (08:45)
[2017-05-31] MEDS ORDERED: Metoclopramide 10 MG/2 ML SDV ONE (08:45)
[2017-05-31] MEDS ORDERED: Octyl 2-Cyanoacrylate 1 Tube ONE (09:44)
--- NOTE | 2017-05-31 10:08 | PCM.OPNOTE ---
- General Post-Op/Procedure Note Date of Surgery/Procedure: 05/31/17 Operative Procedure(s): RIJ port a cath placement Findings: RIJ port Pre Op Diagnosis: Cervical cancer Post-Op Diagnosis: same Anesthesia Technique: General LMA Primary Surgeon: Kristin Funk EBL in mLs: 5 Condition: Good
--- NOTE | 2017-05-31 11:40 | CR ---
EXAMINATION: Portable chest radiograph. HISTORY: Postoperative. FINDINGS: The trachea is midline. The cardiomediastinal silhouette is within normal limits. No pulmonary infilt rates, effusions or pneumothorax. There is a right-sided portacatheter noted with tip in good positio n in the SVC. Osseous structures appear unremarkable. IMPRESSION: No acute cardiopulmonary process.
[2017-05-31 12:09] VITALS: BP 131/79
--- NOTE | 2017-05-31 14:03 | OR ---
SURGEON: KIARA DELGADO MD DATE OF PROCEDURE: 05/31/2017 PREOPERATIVE DIAGNOSIS: Cervical cancer. POSTOPERATIVE DIAGNOSIS: Cervical cancer. PROCEDURE PERFORMED: Right internal jugular Port-A-Cath placement. ANESTHESIA: General LMA. FINDINGS: Right internal jugular Port-A-Cath placement. COMPLICATIONS: None. ESTIMATED BLOOD LOSS: 5 mL. INDICATIONS: The patient is a 52-year-old female with metastatic cervical cancer. The patient will be undergoing chemotherapy and is in need of a Port-A-Cath placement. We discussed the procedure as well as expected perioperative course. We discussed the risks, including bleeding, infection, or damage to surrounding structures, including hemothorax or pneumothorax. The patient verbalized understanding and wishes to proceed. PROCEDURE IN DETAIL: The patient was brought to the operating room and placed on the OR table. A time-out was completed verifying the patient's name, age, date of , allergies, and procedure to be performed. General anesthesia was induced and an LMA was placed in the patient's airway. The right arm was tucked to the patient's side and a shoulder roll was placed underneath her shoulders. Using an ultrasound I verified the vascular anatomy of the right side of her neck. I was clearly able to see the right internal jugular vein and associated carotid artery just beneath it. An ultrasound image was captured and saved. The right neck and chest were prepped and draped in the usual standard fashion. The patient was placed into Trendelenburg position. A sterile ultrasound was brought into the field and again verified the vascular anatomy of the right side of the neck. The area overlying the right internal jugular vein was anesthetized with 1% lidocaine plain. Using ultrasound guidance, I placed the director graphics needle into the right internal jugular vein. I was able to aspirate venous blood and a guidewire was placed down the vein into the superior vena cava. A small amount of ectopy was noted. The guidewire was pulled back slightly. A chest x-ray was brought in and confirmed the placement of the guidewire into the superior vena cava. My attention was then turned to the right anterior chest. I located a spot approximately 3 fingerbreadths below the right clavicle laterally. This area was anesthetized with 0.5% Marcaine plain and the remainder of the 1% lidocaine plain. A 4 cm incision was made with a 15 blade. Using cautery, I dissected down through the subcutaneous tissues. The patient had a large amount of fatty tissue over the area. Because of this, I dissected down into the subcutaneous fat, but not to the level of the chest wall. A subcutaneous pocket was created. I then tunneled the catheter tubing from the subcutaneous pocket up to the guidewire insertion site on the neck. I then dilated the right internal jugular vein under fluoroscopic guidance. The dilator was removed and a vascular sheath left in place. The catheter tubing was placed down the sheath into the superior vena cava and the sheath split and pulled away. A chest x-ray was taken to confirm that the tubing was located in the superior vena cava. Under fluoroscopic guidance the tubing was pulled back to an appropriate level. The catheter tubing was then aspirated and a large amount of venous blood was returned. It was then flushed with injectable saline. The tubing was then trimmed and placed on the Port-A-Cath device. The Port-A-Cath was placed in the subcutaneous chest wall pocket and secured to the surrounding tissues with interrupted 2-0 Prolene. The port was aspirated and then locked with 3 mL of heparinized saline. The anterior chest wall wound was closed with interrupted 3-0 Vicryl in the subcutaneous space in a running 4-0 Monocryl suture in the subcuticular space. An interrupted 4-0 Monocryl suture closed the skin at the guidewire insertion site on the neck. Dermabond and sterile dressings were applied. The patient tolerated the procedure well and was taken to the PACU in stable condition. I am currently awaiting a chest x- ray in the PACU to confirm good placement of the tubing, Port-A-Cath, and no postoperative hemothorax or pneumothorax. BASILIA JOE /[id number]
== END 2017-05-31 11:25 | disposition home or self-care (01) ==
LOC: MW.SDS 06:56
PROVIDERS: ATTEND Surgery
DX: C53.9 Malignant neoplasm of cervix uteri, unspecified (principal); F17.210 Nicotine dependence, cigarettes, uncomplicated; E66.01 Morbid (severe) obesity due to excess calories; E11.9 Type 2 diabetes mellitus without complications; J45.909 Unspecified asthma, uncomplicated; Z92.3 Personal history of irradiation; Z86.718 Personal history of other venous thrombosis and embolism; Z79.84 Long term (current) use of oral hypoglycemic drugs; Z79.899 Other long term (current) drug therapy; Z90.49 Acquired absence of other specified parts of digestive tract; Z68.43 Body mass index [BMI] 50.0-59.9, adult; Z88.0 Allergy status to penicillin; Z88.1 Allergy status to other antibiotic agents
CPT/HCPCS: 36561; 71010; 76000; 76998; 82962; A9270; C1788; J1200; J1642; J2250; J2405; J2765; J3010; J7120; 00532; J2704